=== PATIENT | male | born 1940 | race Asian ===

== ENCOUNTER 2017-08-26 17:22 | Observation (INO) | payer OTHER, MEDICARE ==
[~2017-08-26] VITALS: Ht 170.2 cm; Wt 67.1 kg
--- NOTE | 2017-08-26 18:04 | CT SCAN REPORT ---
EXAMINATION: CT HEAD WITHOUT CONTRAST CLINICAL INFORMATION: Bilateral leg numbness. Dizziness. COMPARISON: None TECHNIQUE: Contiguous axial imaging was performed from the skull base to vertex without intravenous administration of contrast. DLP: 617.74 mGy-cm FINDINGS: There is no evidence of acute intracranial hemorrhage or territorial infarction. No abnormal mass effect or midline shift is seen. Bronson to white matter differentiation is well preserved. No extra-axial fluid collections are identified. There is no hydrocephalus. Encephalomalacia from a chronic infarct in the left frontal white matter involving the left basal ganglia is noted. There is ex vacuo dilatation of the frontal horn of the left lateral ventricle. The osseous structures and soft tissues are normal. The mastoid air cells and visualized portions of the paranasal sinuses are well aerated. IMPRESSION: No acute intracranial pathology. 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
[2017-08-26 18:19] LABS: ABSOLUTE BASOPHIL COUNT 0 /CUMM (0.0-0.2); ABSOLUTE EOSINOPHIL COUNT 1.2 /CUMM (0.0-0.7); ABSOLUTE LYMPH COUNT 4.5 /CUMM (1.2-3.4); ABSOLUTE MONOCYTE COUNT 0.8 /CUMM (0.10-0.60); BASOPHIL % 0.4 % (0.0-2.0); EOSINOPHIL % 10.1 % (0-5); GRANULOCYTE % 43.2 % (42.2-75.2); HEMATOCRIT 46.4 % (42-52); MEAN CORPUSCULAR HGB 29.3 PG (27.0-31.0); MEAN CORPUSCULAR VOLUME 88.8 FL (80.0-94.0); MEAN PLATELET VOLUME 7.3 FL (7.4-10.4); RBC DISTRIBUTION WIDTH 13.4 % (11.5-14.5); RED BLOOD CELL CT 5.22 /CUMM (4.70-6.10); WHITE BLOOD CELL COUNT 11.6 /CUMM (4.8-10.8)
[2017-08-26 18:35] LABS: PLATELET COUNT 350 /CUMM (130-400)
--- NOTE | 2017-08-26 19:18 | ED NEURO DEFICIT/STROKE ---
History of Present Illness General Chief Complaint: General Adult Stated Complaint: NUMBNESS/WEAKNESS TO [place] LEGS Source: patient, family Exam Limitations: no limitations Vital Signs & Intake/Output Vital Signs & Intake/Output Vital Signs Date Time Temp Pulse Resp B/P B/P Pulse O2 O2 Flow FiO2 Mean Ox Delivery Rate 08/26 2144 98.2 66 20 148/72 97 Room Air 08/26 1933 98.5 57 20 142/75 96 Room Air 08/26 1902 97 Room Air Room Air 08/26 1746 98.2 69 16 166/88 98 Room Air Room Air Allergies Coded Allergies: No Known Allergies (08/26/17) Triage Note: PT TO TRIAGE WITH PRONOUNCED WEAKNESS TO BILATERAL LEGS SINCE 11 TODAY. DENIES TRAUMA AND STATES SYMPTOMS CAME ON QUICKLY. PT HAS NUMBNESS TO ONLY LEFT LEG. HE IS ALERT AND ORIENTED, FACE IS SYMMETRICAL AND HAND GRASPS ARE STRONG. PT BACK FROM CT Triage Nurses Notes Reviewed? yes Onset: Abrupt Duration: hour(s): Severity: moderate, severe Impaired Ability: difficult to walk, off balance Baseline: alert, oriented x 3 HPI: 77-year-old male comes into the emergency room with weakness in his leg and off balance. Patient reports that around 11:00 this morning when he got up from his bed he felt profoundly weak in his legs bilaterally. He reports that he felt like he was having difficulty with his walking and balance and coordination. Did not feel dizzy or lightheaded. Denies any chest pain or shortness of breath. Denies any prior history of symptoms like this. Comes in for further evaluation due to persistent symptoms. (Nick Escalera) Reconcile Medications Amlodipine Besylate 10 MG TABLET 1 TAB PO DAILY HIGH BLOOD PRESSURE (Reported ) (Jacob Dimas DO) Past History Travel History Traveled to [place] past 21 day No Medical History Any Pertinent Medical History? 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 No (Nick Escalera) Review of Systems Review of Systems Constitutional: Reports: no symptoms. EENTM: Reports: no symptoms. Respiratory: Reports: no symptoms. Cardiovascular: Reports: no symptoms. GI: Reports: no symptoms. Genitourinary: Reports: no symptoms. Musculoskeletal: Reports: no symptoms. Skin: Reports: no symptoms. Neurological/Psychological: Reports: see HPI. Hematologic/Endocrine: Reports: no symptoms. Immunologic/Allergic: Reports: no symptoms. All Other Systems: Reviewed and Negative (Nick Escaelra) Physical Exam Physical Exam General Appearance: well developed/nourished, no apparent distress, alert, awake Head: atraumatic, normal appearance Eyes: Bilateral: normal appearance. Ears, Nose, Throat: moist mucous membrane, hearing grossly normal Neck: normal inspection Respiratory: no respiratory distress Cardiovascular: regular rate/rhythm Gastrointestinal: soft, non-tender Back: normal inspection Extremities: normal range of motion Psychiatric: awake, alert, oriented x 3 Cranial Nerves: normal hearing, normal speech, PERRL Coordination/Gait: ABN nose to finger (R), slightly unsteady on feet, negative Romberg Motor/Sensory: no motor/sensory deficits Skin: intact, normal color Core Measures CVA/TIA Diagnosis: Yes NIH Stroke Scale NIH Stroke Scale Response Value Level of Consciousness alert 0 LOC Questions answers both correctly 0 LOC Commands obeys both correctly 0 Best Gaze normal 0 Visual Castaneda no visual loss 0 Facial Paresis normal 0 Motor Arm - Left no drift 0 Motor Arm - Right no drift 0 Motor Leg - Left no drift 0 Motor Leg - Right no drift 0 Limb Ataxia no ataxia 0 Sensory normal 0 Best Language no aphasia 0 Dysarthria normal articulation 0 Extinction and Inattention no neglect 0 Total 0 Swallow Evaluation Pass Swallow eval date 08/26/17 Swallow eval time 2015 Sepsis Present: No Sepsis Focused Exam Completed? No (Nick Escalera) Progress Differential Diagnosis: acute glaucoma, Casey's Palsy, drug intoxication, electrolyte imbalance, encephalitis, hypoglycemia, intracranial Hem., intracranial mass/tumor, meningitis, migraine VILLA, seizure disorder, stroke, subarachnoid Hem., vertebrobasilar insuff. Plan of Care: Orders Procedure Date/time Status Heart Healthy Diet 08/27 B Active ECHOCARDIOGRAM 08/27 09 Active LIPID PANEL 08/27 06 Active CBC WITHOUT DIFFERENTIAL 08/27 0600 Active BASIC ELECTROLYTES PLUS BUN&CR 08/27 0600 Active TROPONIN LEVEL 08/27 0000 Active Pathway - chart 08/26 215 Active Patient Data 08/[address] in observation 08/26 2024 Active ED Holding Orders 08/26 2024 Active Vital Signs 08/26 2024 Active Code Status 08/26 2024 Active Intake & Output 08/26 1913 Active EKG 08/26 1748 Active FingerStick- Glucose 08/26 1727 Active URINALYSIS 08/26 1727 Complete TROPONIN LEVEL 08/26 1727 Complete ETHANOL 08/26 1727 Complete COMPREHENSIVE METABOLIC PANEL 08/26 1727 Complete CBC WITHOUT DIFFERENTIAL 08/26 1727 Complete [id number] DOPPLER 08/26 UNK Active PT Evaluate & Treat 08/26 UNK Active House Staff 08/26 UNK Active VTE Mechanical Prophylaxis 08/26 UNK Active Telemetry/Yard Hostler 08/26 UNK Active Precautions 08/26 UNK Active NIH Stroke Scale 08/26 UNK Active CMS- Neurovascular Checks 08/26 UNK Active Activity/Ambulation 08/26 UNK Active MRI-HEAD W/O ADRIANNA 08/26 UNK Active EKG 08/26 UNK Active Current Medications Sig/Regine Start time Last Medication Dose Stop Time Status Admin Aspirin 81 MG DAILY 08/27 0900 AC (Aspirin) Enoxaparin Sodium 40 MG DAILY 08/27 0900 UNVr (Lovenox) Acetaminophen 650 MG Q6P PRN 08/26 2200 AC (Tylenol) Atorvastatin Calcium 80 MG 1700 08/26 2200 AC (Lipitor) Laboratory Tests 08/26/17 1910: Urine Color YEL, Urine Clarity CLEAR, Urine pH 7.0, Ur Specific [place] 1.020, Urine Protein NEG, Urine Ketones NEG, Urine Nitrite NEG, Urine Bilirubin NEG, Urine Urobilinogen 0.2, Ur Leukocyte Esterase NEG, Ur Microscopic EXAM NOT REQUIRED, Urine Hemoglobin NEG, Urine Glucose NEG 08/26/17 1800: Anion Gap 10, Estimated GFR > 60, BUN/Creatinine Ratio 20.0, Glucose 85, Calcium 9.1, Total Bilirubin 0.6, AST 21, ALT 30, Alkaline Phosphatase 69, Troponin I < 0.01, Total Protein 7.5, Albumin 4.6, Globulin 2.9, Albumin/Globulin Ratio 1.6, CBC w Diff MAN DIFF ORDERED, RBC 5.22, MCV 88.8, MCH 29.3, MCHC 33.0, RDW 13.4, MPV 7.3 L, Gran % 43.2, Lymphocytes % 39.0, Monocytes % 7.3, Eosinophils % 10.1 H, Basophils % 0.4, Absolute Granulocytes 5.0, Segmented Neutrophils 45, Band Neutrophils 2, Absolute Lymphocytes 4.5 H, Lymphocytes 43, Monocytes 3, Absolute Monocytes 0.8 H, Eosinophils 7 H, Absolute Eosinophils 1.2, Absolute Basophils 0, Nucleated RBCs 4 H, Platelet Estimate VERIFIED BY SMEAR, Normocytic RBCs VERIFIED, Normochromic RBCs VERIFIED, Serum Alcohol < 10.0 Diagnostic Imaging: Viewed by Me: CT Scan. Discussed w/RAD: CT Scan. Radiology Impression: PATIENT: DONOVAN QUINONEZ PRESENT AGE: 77 PATIENT ACCOUNT NO: [id number] : 41 LOCATION: [facility] ORDERING PHYSICIAN: Florian CEDEÑO SERVICE DATE: 08/26/17 EXAM TYPE: CAT - CT HEAD WO IV CONTRAST EXAMINATION: CT HEAD WITHOUT CONTRAST CLINICAL INFORMATION: Bilateral leg numbness. Dizziness. COMPARISON: None TECHNIQUE: Contiguous axial imaging was performed from the skull base to vertex without intravenous administration of contrast. DLP: 617.74 mGy-cm FINDINGS: There is no evidence of acute intracranial hemorrhage or territorial infarction. No abnormal mass effect or midline shift is seen. Bronson to white matter differentiation is well preserved. No extra-axial fluid collections are identified. There is no hydrocephalus. Encephalomalacia from a chronic infarct in the left frontal white matter involving the left basal ganglia is noted. There is ex vacuo dilatation of the frontal horn of the left lateral ventricle. The osseous structures and soft tissues are normal. The mastoid air cells and visualized portions of the paranasal sinuses are well aerated. IMPRESSION: No acute intracranial pathology. 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 DICTATED BY: Remberto Small MD DATE/TIME DICTATED:08/26/171758 PATIENT CARE NURSING ASSISTANT:DANE DATE/TIME TRANSCRIBED:08/26/171758 CONFIDENTIAL, DO NOT COPY WITHOUT APPROPRIATE AUTHORIZATION. <Electronically signed in Other Vendor System> SIGNED BY: Remberto Small MD 08/26/171803 Initial ED EKG: normal sinus rhythm, rate (62) (Nick Escalera) Departure Departure Disposition: STILL A PATIENT Condition: Stable Clinical Impression Primary Impression: TIA (transient ischemic attack) Departure Forms: Customer Survey General Discharge Information Observation Note Physician Advisor Notified: JACOB DIMAS DO Place Patient In: Non-ED OBS Care Area Rationale for Observation: My rational for observation is as follows . Patient will require MRI of brain to rule out cerebellar infarct. Neurology consultation. Repeat neuro checks. Repeat vital signs. (Carlos CEDEÑO,Nick) Observation Note Spoke With: Brady Tinajero MD Rationale for Observation: My rational for observation is as follows . I saw and evaluated the patient and I agree with the PAs evaluation. He has severe dizziness and lower extremity weakness which is improved. Findings are concerning for cerebellar TIA (Jacob Dimas DO)
--- NOTE | 2017-08-26 20:51 | History & Physical ---
[facility]1720[facility] General Information and HPI MD Statement: I have seen and personally examined DONOVAN QUINONEZ and documented this H&P. The patient is a 77 year old M who presented with a patient stated chief complaint of [lower extremity weakness]. Source of Information: patient, family Exam Limitations: no limitations History of Present Illness: 77 yo M with PMH of hypertension, hyperlipidemia presents to the ED for evaluation of lower extremity weakness and gait instability. The patient states that he woke up this morning in his usual state of health. He had breakfast. He lives on the first floor, later around 11am he went down to the garage and felt weakness in his lower extremities and that he felt off balance. States he had some blurry vision at that time as well which resolved later. Denies any chest pain, palpitations, dizziness, lightheadedness or any other associated symptoms during the episode. Denies any prior such episodes. He states that around 2pm he noticed his symptoms to have improved. Around 5pm he started feeling like his symptoms had worsened again. He was brought to the ED by family members for further evaluation. In the ED he felt weakness in his right arm which he noticed when trying to use chopsticks to have dinner. Allergies/Medications Allergies: Coded Allergies: No Known Allergies (08/26/17) Past History Travel History Traveled to [place] past 21 day No Medical History Neurological: NONE EENT: NONE Cardiovascular: hypertension, hyperlipidemia Respiratory: NONE Gastrointestinal: NONE Hepatic: NONE Renal: NONE Musculoskeletal: NONE Psychiatric: NONE Endocrine: NONE Blood Disorders: NONE Cancer(s): NONE CAN INTAKE WORKER/Reproductive: NONE Surgical History Surgical History: non-contributory Past Family/Social History Psychosocial History ETOH Use: occasional use Illicit Drug Use: denies illicit drug use Review of Systems Review of Systems Constitutional: Reports: weakness. Denies: chills, fever. EENTM: Reports: blurred vision. Cardiovascular: Denies: chest pain, palpitations. Respiratory: Denies: cough, short of breath. GI: Denies: abdominal pain, diarrhea. Genitourinary: Reports: no symptoms. Musculoskeletal: Denies: joint pain. Skin: Reports: no symptoms. Neurological/Psychological: Denies: headache, numbness, paresthesia, pre-existing deficit. Exam & Diagnostic Data Last 24 Hrs of Vital Signs/I&O Vital Signs Date Time Temp Pulse Resp B/P B/P Pulse O2 O2 Flow FiO2 Mean Ox Delivery Rate 08/26 2144 98.2 66 20 148/72 97 Room Air 08/26 1933 98.5 57 20 142/75 96 Room Air 08/26 1902 97 Room Air Room Air 08/26 1746 98.2 69 16 166/88 98 Room Air Room Air Physical Exam General Appearance Alert, Oriented X3, Cooperative, No Acute Distress Skin No Rashes, No Breakdown Skin Temp/Moisture Exam: Warm/Dry Sepsis Skin Exam (color): Normal for Ethnicity HEENT Atraumatic Cardiovascular Normal S1, Normal S2, No Murmurs Lungs Clear to Auscultation, Normal Air Movement Abdomen Soft, No Tenderness Neurological Normal Speech, Strength at 5/5 X4 Ext, Sensation Intact, Cranial Nerves 3-12 NL, Reflexes 2+ Extremities No Edema, No Tenderness/Swelling Assessment/Plan Assessment: 77 yo M with PMH of hypertension, hyperlipidemia presents to the ED for evaluation of lower extremity weakness and gait instability. Assessment: 1. TIA vs Stroke 2. 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 History of Hypertension Plan: * Admit patient to telemetry for monitoring of arrhythmia * R/o ACS with serial trops and EKGs * One time aspirin 325mg to be given now and 81mg from tomorrw * Carotid U/S to assess for stenosis * Neurochecks q8 * Neurology consult in am * MRI in am to assess for acute infarct. * Cardiology consult * Echocardiogram to assess for LV thrombus/PFO/septal defect * Lipid Panel * PT/OT in am * Diet: Heart Healthy * DVT Prophylaxis: SC Lovenox * Code: Full Code As Ranked By This Provider Problem List: 1. TIA (transient ischemic attack) Core Measures/Misc (01/26) Acute Coronary Syndrome ACS Diagnosis: No Congestive Heart Failure Congestive Heart Failure Diagnosis No Cerebrovascular Accident CVA/TIA Diagnosis: Yes NIH Stroke Scale: Total 0 Date Last Known Well: 08/26/17 Time Last Known Well: 1100 Symptom Start Date: 08/26/17 Symptom Start Time: 1100 Reason tPA not ordered Medical Contraindication Swallow Evaluation Pass VTE (View Protocol) VTE Risk Factors Age>40 No Mechanical VTE Prophylaxis d/t N/A MechProphylax Ordered No VTE Pharm Prophylaxis d/t NA PharmProphylax ordered Sepsis (View protocol) Sepsis Present: No Observation Initial Note - I have personally examined DONOVAN QUINONEZ on 08/27/17 at 0527. The disposition of DONOVAN QUINONEZ is uncertain at this time and before a determination can be made, he requires a period of observation for the following reasons [TIA/ stroke] Lior REYNOLDS, [facility] 08/27/17 0130: Attending MD Review Statement Attending Statement Attending MD Statement: examined this patient, discuss w/resident/PA/CLAIMS ADJUSTER SUPERVISOR, agreed w/resident/PA/CLAIMS ADJUSTER SUPERVISOR, discussed with family, reviewed images, amended to note Attending Assessment/Plan: 77 M smoker with h/o HTN, HLD, is here for sudden onset b/l lower extremity weakness and gait instability that started around 11 am yesterday. He also noticed transient blurry vision that has resolved since. He took a short nap and woke up around 2 pm feeling some improvement in the weakness. But around 5 pm, he felt weak in his leg and off balance when he tries to ambulate, so his daughters brought him to the ER. While in the ER, he tried to use the chopsticks to ear, but felt his right hand is weaker although he was able to use it. When asked to ambulate, he feels he is in the air and off balance. Denies dizziness, CP or palpitations. No prior h/o stroke or TIA. No history of IA or diabetes. Family did not notice any facial droop or speech deficits. Vitals stable. Neuro exam: speech clear, tongue/ uvula central, cranial nerve exam normal, no visual field deficits, no pronator drift, motor 5/5 in all extremities but very vague difference on right compared to left, sensation intact, plantars downgoing , reflexes 2+, no dysdiadochokinesia, finger nose testing was slightly off on the right side on initial ER PA exam, but this was accurate/ normal at the time of our evaluation. Gait- patient took slow steps and was dragging his right leg when asked to stand with feet together. On romberg's he was swaying backwards. Chest clear, Heart S1S2 regular. Labs: WBC 11.6, eosinophils 7, trop neg, BEP normal, UA neg. Alcohol < 10. 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 EKG: sinus rhythm, no acute changes. Assessment and plan: 1. Bilateral lower extremity weakness with gait instability likely an acute stroke 2. Old left frontal infarct based on CT 3. Essential hypertension 4. Hyperlipidemia not on medications 5. Smoker 6. Eosinophilia of unclear etiology 7. Leukocytosis likely reactive, no clear source - 23 hour observation on Telemetry - Neurochecks Q2 - Fall precautions - Aspirin and high dose statin - MRI in AM - Carotid doppler and Echo - Rule out ACS - Neuro and Cardio consults - PT/OT eval - Passed bedside swallow eval - Smoking cessation enforced. - Check lipid panel, TSH, free T4, HbA1c DVT ppx Lovenox. Full code. Observation Initial Note - I have personally examined DONOVAN QUINONEZ on 08/27/17 at 0130. The disposition of DONOVAN QUINONEZ is uncertain at this time and before a determination can be made, he requires a period of observation for the following reasons [TIA/ stroke] Catarina Croft 08/27/17 1546: General Information and HPI Allergies/Medications Home Med list Amlodipine Besylate 10 MG TABLET 1 TAB PO DAILY HIGH BLOOD PRESSURE (Reported ) Aspirin (Aspirin*) 81 MG TAB.CHEW 81 MG PO DAILY cardiovascular health Atorvastatin Calcium 80 MG TABLET 80 MG PO DAILY cholesterol Resident Review Statement Resident Statement: examined this patient, discussed with risk management intern, agreed with risk management intern, discussed with family, reviewed EMR data (avail), discussed with nursing , discussed with case mgmt, reviewed images Other Findings: is a pleasent 77 yo man active smoker, with PMHx. of HTN, HLD presented to ED with a c/o right LE extrimity weakness and Rt. UE weakness at ED concerning for TIA. Head CT-old frontal infarct. Will admitt the patient to telemetry floor under observation, neurochecks, fall precautions, MRI-head, carotid US, echocardiogram, Neurology consult, statin/ aspirin, R/O ACS, PT/OT, lipid panel, dvt ppx: MAXX Lovewinifred, SINDHU
[2017-08-26] MEDS ORDERED: AMLODIPINE BESY10 M1 PO (21:46)
[2017-08-27 06:07] LABS: ABSOLUTE BASOPHIL COUNT 0.1 /CUMM (0.0-0.2); ABSOLUTE EOSINOPHIL COUNT 1.1 /CUMM (0.0-0.7); ABSOLUTE GRANULOCYTE CT 5.5 /CUMM (1.4-6.5); ABSOLUTE LYMPH COUNT 3.7 /CUMM (1.2-3.4); ABSOLUTE MONOCYTE COUNT 0.8 /CUMM (0.10-0.60); BASOPHIL % 0.5 % (0.0-2.0); EOSINOPHIL % 9.9 % (0-5); GRANULOCYTE % 49.4 % (42.2-75.2); HEMATOCRIT 42.9 % (42-52); MEAN CORPUSCULAR HGB 29.6 PG (27.0-31.0); MEAN CORPUSCULAR HGB CONC 33.4 G/DL (33.0-37.0); MEAN CORPUSCULAR VOLUME 88.6 FL (80.0-94.0); MEAN PLATELET VOLUME 7.4 FL (7.4-10.4); PLATELET COUNT 337 /CUMM (130-400); RBC DISTRIBUTION WIDTH 13.3 % (11.5-14.5); RED BLOOD CELL CT 4.84 /CUMM (4.70-6.10); WHITE BLOOD CELL COUNT 11.2 /CUMM (4.8-10.8)
[2017-08-27 07:00] VITALS: BP 142/67
--- NOTE | 2017-08-27 08:30 | PN- Housestaff ---
Glory Flood MD 08/27/17 0830: Subjective Follow-up For: Stroke Complaints: no complaints Tele-Events Since Last Visit: Sinus rhythm 55-65 with no events Subjective: Patient states that this morning he has no weakness and is back to normal. His right arm issues as well as his knee issues have resolved. The patient has no other complaints. Review of Systems Constitutional: Reports: no symptoms. Objective Last 24 Hrs of Vital Signs/I&O Vital Signs Date Time Temp Pulse Resp B/P B/P Pulse O2 O2 Flow FiO2 Mean Ox Delivery Rate 08/27 1512 98.2 56 16 135/70 98 Room Air Room Air 08/27 0700 97.8 61 20 142/67 96 Room Air 08/27 0538 97.8 61 20 142/67 96 Room Air 08/27 0004 97.5 63 18 130/85 96 Room Air 08/26 2145 98.2 66 20 148/72 97 Room Air 08/26 1933 98.5 57 20 142/75 96 Room Air 08/26 1902 97 Room Air Room Air 08/26 1746 98.2 69 16 166/88 98 Room Air Room Air Intake & Output 08/27 1600 08/27 0800 08/27 0000 Intake Total 400 Output Total 400 Balance 400 -400 Intake, Oral 400 Output, Urine 400 Patient 148 lb 148 lb Weight Physical Exam General Appearance: Alert, Oriented X3, Cooperative, No Acute Distress Skin: No Rashes, No Breakdown, No Significant Lesion Skin Temp/Moisture Exam: Warm/Dry HEENT: Atraumatic, PERRLA, EOMI, Mucous Membr. moist/pink Cardiovascular: Regular Rate, Normal S1, Normal S2, No Murmurs Lungs: Clear to Auscultation, Normal Air Movement Abdomen: Normal Bowel Sounds, Soft, No Tenderness, No Hepatospenomegaly, No Masses Neurological: Strength at 5/5 X4 Ext, Normal Tone, Cranial Nerves 3-12 NL, Reflexes 2+, slow gait, strength 5 out of 5 in all extremities including the right arm. No facial asymmetry. Extremities: No Clubbing, No Cyanosis, No Edema, Normal Pulses, No Tenderness/ Swelling Vascular: Normal Pulses, Pulses Symmetrical Sepsis Peripheral Pulse Location: Radial Current Medications: Current Medications Sig/Regine Start time Last Medication Dose Route Stop Time Status Admin Acetaminophen 650 MG Q6P PRN 04/17 2200 AC PO Aspirin 81 MG DAILY 04/18 0900 AC 08/27 PO 1009 Aspirin 0 .STK-MED ONE 08/26 2350 DC PO Aspirin 325 MG ONCE ONE 08/26 2199 DC 08/27 PO 08/26 2201 0000 Atorvastatin Calcium 80 MG 1700 08/26 2200 AC 08/27 PO 0000 Enoxaparin Sodium 40 MG DAILY 08/27 0900 AC 08/27 SC 1009 Last 24 Hrs of Lab/Emiliano Results Last 24 Hrs of Labs/Mics: Laboratory Tests 08/27/17 0536: Anion Gap 10, Estimated GFR > 60, BUN/Creatinine Ratio 23.3, Triglycerides 170 H, Cholesterol 160, LDL Cholesterol, Calc 94, HDL Cholesterol 32 L, Cholesterol /HDL Ratio 5 H, CBC w Diff MAN DIFF ORDERED, RBC 4.84, MCV 88.6, MCH 29.6, MCHC 33.4, RDW 13.3, MPV 7.4, Gran % 49.4, Lymphocytes % 32.9, Monocytes % 7.3, Eosinophils % 9.9 H, Basophils % 0.5, Absolute Granulocytes 5.5, Segmented Neutrophils 50, Absolute Lymphocytes 3.7 H, Lymphocytes 34, Monocytes 3, Absolute Monocytes 0.8 H, Eosinophils 12 H, Absolute Eosinophils 1.1, Basophils 1, Absolute Basophils 0.1, Platelet Estimate ADEQUATE, Normochromic RBCs VERIFIED, Ovalocytes FEW, Fld Total RBCs Counted 100 08/27/17 0006: Troponin I < 0.01 08/26/17 1910: Urine Color YEL, Urine Clarity CLEAR, Urine pH 7.0, Ur Specific [place] 1.020, Urine Protein NEG, Urine Ketones NEG, Urine Nitrite NEG, Urine Bilirubin NEG, Urine Urobilinogen 0.2, Ur Leukocyte Esterase NEG, Ur Microscopic EXAM NOT REQUIRED, Urine Hemoglobin NEG, Urine Glucose NEG 08/26/17 1800: Anion Gap 10, Estimated GFR > 60, BUN/Creatinine Ratio 20.0, Glucose 85, Calcium 9.1, Total Bilirubin 0.6, AST 21, ALT 30, Alkaline Phosphatase 69, Troponin I < 0.01, Total Protein 7.5, Albumin 4.6, Globulin 2.9, Albumin/Globulin Ratio 1.6, CBC w Diff MAN DIFF ORDERED, RBC 5.22, MCV 88.8, MCH 29.3, MCHC 33.0, RDW 13.4, MPV 7.3 L, Gran % 43.2, Lymphocytes % 39.0, Monocytes % 7.3, Eosinophils % 10.1 H, Basophils % 0.4, Absolute Granulocytes 5.0, Segmented Neutrophils 45, Band Neutrophils 2, Absolute Lymphocytes 4.5 H, Lymphocytes 43, Monocytes 3, Absolute Monocytes 0.8 H, Eosinophils 7 H, Absolute Eosinophils 1.2, Absolute Basophils 0, Nucleated RBCs 4 H, Platelet Estimate VERIFIED BY SMEAR, Normocytic RBCs VERIFIED, Normochromic RBCs VERIFIED, Serum Alcohol < 10.0 Assessment/Plan Assessment: 77-year-old male with a past medical history significant for hypertension, hyperlipidemia, smoking, tuberculosis treated is brought in for evaluation and treatment of weakness. The patient states that on the day of admission at about 11 AM he felt that his knees were weak when he attempted to descend a flight of stairs. He also noticed transient blurry vision. He took a short nap and woke up around 2 pm feeling some improvement in the weakness. But around 5 pm, the weakness returned so his daughters brought him in. Family did not notice any facial droop or speech deficits.While in the ER, he noted that he felt his right hand was weaker although he was able to use it. At the time of interview in the ED he stated that he felt off balance when attempting to ambulate. Denies dizziness, CP or palpitations. No prior h/o stroke or TIA. No history of [place] or diabetes. Patient has a family history of heart disease. Neuro exam: speech clear, tongue/ uvula central, cranial nerve exam normal, no visual field deficits, no pronator drift, motor 5/5 in all extremities but very vague difference on right compared to left, sensation intact, plantars downgoing , reflexes 2+, no dysdiadochokinesia, finger nose testing was slightly off on the right side on initial ER PA exam, but this was accurate/ normal at the time of our evaluation. Gait- patient took slow steps and was dragging his right leg when asked to stand with feet together. On romberg's he was swaying backwards. 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 EKG: sinus rhythm, no acute changes. Plan Patient was placed in observation on the telemetry floors for evaluation and treatment of the following: Weakness with old left frontal infarct based on CT -Neuro consult -MRI showed small acute infarct in the left thalamus. This could affect the patient's sensation, balance, peripheral vision. This also could cause nausea vomiting. Of note the patient continues to have difficulty with balance. -Neurochecks every 2 hours -Fall precautions -Aspirin and high-dose statin, patient's lipid panel showed elevated triglycerides and LDL but cholesterol and LDL within normal limits -Echocardiogram -Carotid Doppler was negative. -Troponins and EKGs negative -PT/OT eval -Patient passed bedside swallow so has been placed on a diet. -TSH, free T4, HbA1c Essential hypertension -Patient on amlodipine outpatient -We will hold amlodipine at the moment for permissive hypertension. For TIA data does not support with holding antihypertensives but as patient was found to have stroke in thalamus we will hold his amlodipine. Hyperlipidemia not on medications -High-dose statin Smoker -Smoking cessation enforced. DVT ppx Lovenox. Full code. Problem List: 1. Acute thalamic infarction Pain Ratin Pain Location: na Pain Goal: Remain pain free Pain Plan: na Tomorrow's Labs & Rationales: cbc bep Mervin Rodriguez 08/27/17 1422: Attending MD Review Statement Attending Statement Attending MD Statement: examined this patient, discuss w/resident/PA/DOWEL POINTER, agreed w/resident/PA/DOWEL POINTER, discussed with family, reviewed EMR data (avail), discussed with nursing, discussed with case mgmt, reviewed images, amended to note Attending Assessment/Plan: Patient admitted to telemetry monitoring for acute stroke. MRI brain with acute small thalamus infarct. Neurology consult. PT/OT , ASA/STATIN, lipid profile, hba1c. Speech/swallow. Neurochecks. gi/dvt prophyalxis
--- NOTE | 2017-08-27 09:39 | ULTRASOUND REPORT ---
EXAMINATION: DUPLEX BILATERAL CAROTID ULTRASOUND CLINICAL INFORMATION: TIA COMPARISON: None. TECHNIQUE: Duplex bilateral carotid US was performed using real-time ultrasound and Doppler techniques (integrating B-mode 2D vascular images, Doppler spectral analysis and color flow Doppler imaging). These techniques were utilized to interrogate the extracranial carotid and vertebral arteries bilaterally. The degree of stenosis is based off criteria similar to NASCET. FINDINGS: 1. On the right: Plaque is present at the carotid bifurcation but velocity measurements are normal and do not suggest a stenosis of greater than 50% diameter reduction in the right ICA. The vertebral artery is patent demonstrating antegrade flow. The right ECA demonstrates a mild stenosis with peak systolic velocity of under 200 cm/s. 2. On the left: No plaque is present at the carotid bifurcation and all velocity measurements are normal and do not suggest a stenosis of greater than 50% diameter reduction in the left ICA. The vertebral artery is patent demonstrating antegrade flow. The left external carotid artery shows no significant stenosis. IMPRESSION: There is plaque present in the right internal carotid artery with normal velocities consistent with a minimal 0-49% stenosis. The left side is normal with no plaque seen.
[2017-08-27] MEDS ORDERED: ASPIRIN81 M4 PO (11:44)
[2017-08-27] MEDS ORDERED: ATORVASTATIN CA80 M1 PO (11:44)
--- NOTE | 2017-08-27 11:46 | Patient Discharge Instructions ---
Discharge Instructions General Discharge Information You were seen/treated for: transient ischemic attack (mini-stroke) You had these procedures: carotid artery ultrasound MRI echocardiogram Watch for these problems: weakness headaches vision changes Special Instructions: 1. please follow up with your primary care doctor in one week 2. please take all meds as directed 3. You need to get an echocardiogram while outpatient. Please titrate your hypertension meds based on echo with PCP. [facility] call [phone] at [facility] to get an appointment Diet Continue normal diet: Yes Recommended Diet: Heart Healthy Activity Full Activity/No Limits: Yes (as tolerated) Acute Coronary Syndrome Inclusion Criteria At DC or during hospital stay patient has or had the following: ACS DIAGNOSIS No Discharge Core Measures Meds if any: Prescribed or Continued at Discharge Meds if any: NOT Prescribed or Continued at Discharge Congestive Heart Failure Inclusion Criteria At DC or during hospital stay patient has or had the following: CHF DIAGNOSIS No Discharge Core Measures Meds if any: Prescribed or Continued at Discharge Meds if any: NOT Prescribed or Continued at Discharge Cerebrovascular accident Inclusion Criteria At DC or during hospital stay patient has or had the following: CVA/TIA Diagnosis Yes Discharge Core Measures Meds if any: Prescribed or Continued at Discharge Statin (required if LDL =>70) Yes Meds if any: NOT Prescribed or Continued at Discharge Venous thromboembolism Inclusion Criteria VTE Diagnosis No VTE Type NONE VTE Confirmed by (Test) NONE Discharge Core Measures - Per Current guidelines, there needs to be overlap - treatment for the first 5 days of Warfarin therapy. - If discharged on Warfarin prior to 5 days of - overlap therapy, the patient will need to be - assessed for post discharge needs including - *Post discharge parental anticoagulation - *Warfarin and/or parental anticoagulation education - *Follow up date to check INR post discharge At least 5 days overlap therapy as Inpatient No Meds if any: Prescribed or Continued at Discharge Note: Overlap Therapy is Warfarin and Anticoagulant Meds if any: NOT Prescribed or Continued at Discharge
--- NOTE | 2017-08-27 11:53 | MRI REPORT ---
EXAMINATION: MR BRAIN WITHOUT CONTRAST CLINICAL INFORMATION: Right-sided weakness. COMPARISON: Head CT from 08/26/2017. TECHNIQUE: Multiplanar, multisequence imaging of the brain was performed without contrast. FINDINGS: There is a small acute infarct in the left thalamus. The ventricles are normal in size. No mass effect or midline shift is seen. Mild chronic white matter microangiopathic changes are noted. There is a chronic infarct in the anterior left basal ganglia. No extra-axial fluid collections are seen. The brainstem and cerebellum are normal. The gradient refocused acquisition is normal. The craniovertebral junction, marrow signal, and midline structures are normal. The major intracranial flow voids at the level of the north fork of [place] are preserved. The dural venous sinus flow voids are maintained. The mastoid air cells are well aerated. There is mild mucosal thickening in the left maxillary sinus. IMPRESSION: Small acute infarct in the left thalamus. Mild chronic white matter microangiopathy. Chronic infarct in the left basal ganglia.
--- NOTE | 2017-08-27 13:24 | PN- Student ---
Subjective Subjective: 77 year old male with hypertension, hyperlipidemia, [id number] smoking history, and history of tuberculosis presents with acute lower extremity weakness and gait instability along with visual bluriness. The patient woke up yesterday feeling normal, but after a few hours he developed weakness and "heaviness" in his lower limbs bilaterally and difficulty walking, along with blurry vision. The symptoms subsided within 2 hours but the lower extremity weakness and gait instability returned in the afternoon. He stated that he felt he'd lost control of his feet and unbalanced, but was able to walk when holding onto something. The symptoms are presently all resolved. The patient denies ever experiencing anything similar before, and he has not recently been sick. 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 patient denies hearing changes, headache, abdominal pain, chest pain and palpitations. PMHx: TB dx 23 years ago when he immigrated [place] from [place]. recalls taking medication for 3 months. Medications: aspirin, atorvastatin, amlodipine (held by ER). takes vitamin E supplement (1 tablet a day for "aging") FHx: mother of heart-related illnes at 84 y.o. father alive at 101 y.o. with HTN. siblings healthy other than HTN. Social Hx: [id number] smoking history. 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 accompanied by his daughter CV: normal S1, S2. RRR, no murmurs Pulm: lungs clear to ascultation bilaterally HEENT: PERRLA, EOMI, no cervical LAD Neuro: CN2-7 normal. pt had hard time hearing when testing CN8. CN 9-10,12 not assessed. CN 11 normal. content checker, arm, leg, hip, foot strenth 5/5 bilaterally. sensation of lower legs assessed with both ends of cotton swab and normal CT in ED showed chronic infarct in left frontal white matter and left basal ganglia, with no acute findings Doppler showed right-sided plaque at at carotid bifurcation with stenosis <50%. left side was clear MRI showed small acute infarct in left thalamus Results Results: Laboratory Tests 08/27/17 0536: Anion Gap 10, Estimated GFR > 60, BUN/Creatinine Ratio 23.3, Triglycerides 170 H, Cholesterol 160, LDL Cholesterol, Calc 94, HDL Cholesterol 32 L, Cholesterol /HDL Ratio 5 H, CBC w Diff MAN DIFF ORDERED, RBC 4.84, MCV 88.6, MCH 29.6, MCHC 33.4, RDW 13.3, MPV 7.4, Gran % 49.4, Lymphocytes % 32.9, Monocytes % 7.3, Eosinophils % 9.9 H, Basophils % 0.5, Absolute Granulocytes 5.5, Segmented Neutrophils 50, Absolute Lymphocytes 3.7 H, Lymphocytes 34, Monocytes 3, Absolute Monocytes 0.8 H, Eosinophils 12 H, Absolute Eosinophils 1.1, Basophils 1, Absolute Basophils 0.1, Platelet Estimate ADEQUATE, Normochromic RBCs VERIFIED, Ovalocytes FEW, Fld Total RBCs Counted 100 08/27/17 0006: Troponin I < 0.01 08/26/17 1910: Urine Color YEL, Urine Clarity CLEAR, Urine pH 7.0, Ur Specific [place] 1.020, Urine Protein NEG, Urine Ketones NEG, Urine Nitrite NEG, Urine Bilirubin NEG, Urine Urobilinogen 0.2, Ur Leukocyte Esterase NEG, Ur Microscopic EXAM NOT REQUIRED, Urine Hemoglobin NEG, Urine Glucose NEG 08/26/17 1800: Anion Gap 10, Estimated GFR > 60, BUN/Creatinine Ratio 20.0, Glucose 85, Calcium 9.1, Total Bilirubin 0.6, AST 21, ALT 30, Alkaline Phosphatase 69, Troponin I < 0.01, Total Protein 7.5, Albumin 4.6, Globulin 2.9, Albumin/Globulin Ratio 1.6, CBC w Diff MAN DIFF ORDERED, RBC 5.22, MCV 88.8, MCH 29.3, MCHC 33.0, RDW 13.4, MPV 7.3 L, Gran % 43.2, Lymphocytes % 39.0, Monocytes % 7.3, Eosinophils % 10.1 H, Basophils % 0.4, Absolute Granulocytes 5.0, Segmented Neutrophils 45, Band Neutrophils 2, Absolute Lymphocytes 4.5 H, Lymphocytes 43, Monocytes 3, Absolute Monocytes 0.8 H, Eosinophils 7 H, Absolute Eosinophils 1.2, Absolute Basophils 0, Nucleated RBCs 4 H, Platelet Estimate VERIFIED BY SMEAR, Normocytic RBCs VERIFIED, Normochromic RBCs VERIFIED, Serum Alcohol < 10.0 Assessment/Plan Assessment: 77 year old male patient with history of hypertension, hyperlipidemia, tuberculosis, and a [id number] smoking history presenting with 1 day of acute bilateral lower extremity weakness and gait instability associated with brief vision blurriness, all of which have since resolved. CT showed chronic infarction at the left basal ganglia, indicating chronic cerebrovascular disease. Normal neuro exam leads more toward TIA, but MRI indicated a small acute infarct of the left thalamus and Doppler showed right ICA stenosis of <50%. MRI findings give concern for acute CVA that may have been the cause of patient's presenting symptoms. 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 Patient's supplemental vitamin E use, if overdosed, could contribute to hemorrhagic infarction, but imaging studies point toward ischemic infarct from a clot. Plan: 1. CVA in older male with extensive smoking history, HTN, HLD -MRI, doppler already received - U/S to view vasculature -echo to r/o heart as origin of embolism -lipid panel to determine extent of hyperlipidemia - monitor neuro function -continue lipid-lowering medications 2. [id number] smoking history -encourage and provide resources for smoking cessation 3. chronic lower back pain - acetaminophen and ibuprofen as needed - repeat spinal xray
--- NOTE | 2017-08-27 15:19 | Cons- Neurology ---
General Information and HPI Consulting Request Date of Consult: 08/27/17 Requested By: Mervin Rodriguez MD Reason for Consult: CVA Source of Information: patient, family, old records Exam Limitations: no limitations History of Present Illness: Consult request received this AM on this 77 Right handed man who was well yesterday AM until a nap around 10 or 11 am, awakened off balance, difficulty walking, some impairment of right hand and heaviness with paresthesias right leg reported afterwards. Today feels about back to normal. No associated headache or cardiac complaints. Not on ASA, known HTN, had been on statin in the past, smoker, no family hx CVA, no prior clinical events. Allergies/Medications Allergies: Coded Allergies: No Known Allergies (08/26/17) Home Med List: Amlodipine Besylate 10 MG TABLET 1 TAB PO DAILY HIGH BLOOD PRESSURE (Reported ) Aspirin (Aspirin*) 81 MG TAB.CHEW 81 MG PO DAILY cardiovascular health Atorvastatin Calcium 80 MG TABLET 80 MG PO DAILY cholesterol Current Medications: Current Medications Sig/Regine Start time Last Medication Dose Route Stop Time Status Admin Acetaminophen 650 MG Q6P PRN 08/26 2200 AC PO Aspirin 81 MG DAILY 08/27 0900 AC 08/27 PO 1009 Aspirin 0 .STK-MED ONE 08/26 2350 DC PO Aspirin 325 MG ONCE ONE 08/26 2200 DC 08/27 PO 08/26 2201 0000 Atorvastatin Calcium 80 MG 1700 08/26 2200 AC 08/27 PO 0000 Enoxaparin Sodium 40 MG DAILY 08/27 0900 AC 08/27 SC 1009 Review of Systems Review of Systems: no complaints on the complete 12 pt ROS Past History Travel History Traveled to [place] past 21 day No Medical History Blood Transfusion Hx: No Neurological: NONE EENT: NONE Cardiovascular: hypertension, hyperlipidemia Respiratory: NONE Gastrointestinal: NONE Hepatic: NONE Renal: NONE Musculoskeletal: NONE Psychiatric: NONE Endocrine: NONE Blood Disorders: NONE Cancer(s): NONE 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 Surgical History Surgical History: non-contributory Psychosocial History Smoking Status: Current Everyday Smoker ETOH Use: occasional use Illicit Drug Use: denies illicit drug use Exam & Diagnostic Data Vital Signs and I&O Vital Signs Date Time Temp Pulse Resp B/P B/P Pulse O2 O2 Flow FiO2 Mean Ox Delivery Rate 08/27 0700 97.8 61 20 142/67 96 Room Air 08/27 0538 97.8 61 20 142/67 96 Room Air 08/27 0004 97.5 63 18 130/85 96 Room Air 08/26 2145 98.2 66 20 148/72 97 Room Air 08/26 1933 98.5 57 20 142/75 96 Room Air 08/26 1902 97 Room Air Room Air 08/26 1746 98.2 69 16 166/88 98 Room Air Room Air Intake & Output 08/27 1600 08/27 0800 08/27 0000 Intake Total 400 Output Total 400 Balance 400 -400 Intake, Oral 400 Output, Urine 400 Patient 148 lb 148 lb Weight Physical Exam: Looks well, no distress no bruits, murmur alert, oriented, language intact no dysarthria, recall OK VFF, EOMI, P4ERRL V and VII normal lower CN normal motor power, tone, 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, normal no drift sensory normal touch pin, DSS DTRs hypoactive, no pathological signs coord normal gait test deferred Last 48 Hours of Lab Results: Laboratory Tests 08/27 08/27 0536 0006 Chemistry Sodium (137 - 145 mmol/L) 140 Potassium (3.5 - 5.1 mmol/L) 3.9 Chloride (98 - 107 mmol/L) 106 Carbon Dioxide (22 - 30 mmol/L) 25 Anion Gap (5 - 16) 10 BUN (9 - 20 mg/dL) 14 Creatinine (0.7 - 1.2 mg/dL) 0.6 L Estimated GFR (>60 ml/min) > 60 BUN/Creatinine Ratio (7 - 25 %) 23.3 Troponin I (<0.11 ng/ml) < 0.01 Triglycerides (<150 mg/dL) 170 H Cholesterol (< 200 MG/DL) 160 LDL Cholesterol, Calc (65 - 129 mg/dL) 94 HDL Cholesterol (40 - 60 mg/dL) 32 L Cholesterol/HDL Ratio (0.00 - 4.88 %) 5 H Hematology CBC w Diff MAN DIFF ORDERED WBC (4.8 - 10.8 /CUMM) 11.2 H RBC (4.70 - 6.10 /CUMM) 4.84 Hgb (14.0 - 18.0 G/DL) 14.3 Hct (42 - 52 %) 42.9 MCV (80.0 - 94.0 FL) 88.6 MCH (27.0 - 31.0 PG) 29.6 MCHC (33.0 - 37.0 G/DL) 33.4 RDW (11.5 - 14.5 %) 13.3 Plt Count (130 - 400 /CUMM) 337 MPV (7.4 - 10.4 FL) 7.4 Gran % (42.2 - 75.2 %) 49.4 Lymphocytes % (20.5 - 51.1 %) 32.9 Monocytes % (1.7 - 9.3 %) 7.3 Eosinophils % (0 - 5 %) 9.9 H Basophils % (0.0 - 2.0 %) 0.5 Absolute Granulocytes (1.4 - 6.5 /CUMM) 5.5 Segmented Neutrophils (42.2 - 75.2 %) 50 Absolute Lymphocytes (1.2 - 3.4 /CUMM) 3.7 H Lymphocytes (20.5 - 51.1 %) 34 Monocytes (1.7 - 9.3 %) 3 Absolute Monocytes (0.10 - 0.60 /CUMM) 0.8 H Eosinophils (0 - 5.0 %) 12 H Absolute Eosinophils (0.0 - 0.7 /CUMM) 1.1 Basophils (0.0 - 2.0 %) 1 Absolute Basophils (0.0 - 0.2 /CUMM) 0.1 Platelet Estimate (ADEQUATE) ADEQUATE Normochromic RBCs VERIFIED Ovalocytes FEW Other Body Source Fld Total RBCs Counted (%) 100 08/26 1910 Urines Urine Color (YEL,AMB,STR) YEL Urine Clarity (CLEAR) CLEAR Urine pH (5.0 - 8.0) 7.0 Ur Specific [place] (1.001 - 1.035) 1.020 Urine Protein (NEG,<30 MG/DL) NEG Urine Ketones (NEG) NEG Urine Nitrite (NEG) NEG Urine Bilirubin (NEG) NEG Urine Urobilinogen (0.1 - 1.0 EU/dl) 0.2 Ur Leukocyte Esterase (NEG) NEG Ur Microscopic EXAM NOT REQUIRED Urine Hemoglobin (NEG) NEG Urine Glucose (N MG/DL) NEG 08/26 1800 Chemistry Sodium (137 - 145 mmol/L) 140 Potassium (3.5 - 5.1 mmol/L) 4.0 Chloride (98 - 107 mmol/L) 104 Carbon Dioxide (22 - 30 mmol/L) 26 Anion Gap (5 - 16) 10 BUN (9 - 20 mg/dL) 12 Creatinine (0.7 - 1.2 mg/dL) 0.6 L Estimated GFR (>60 ml/min) > 60 BUN/Creatinine Ratio (7 - 25 %) 20.0 Glucose (65 - 99 mg/dL) 85 Calcium (8.4 - 10.2 mg/dL) 9.1 Total Bilirubin (0.2 - 1.3 mg/dL) 0.6 AST (17 - 59 U/L) 21 ALT (21 - 72 U/L) 30 Alkaline Phosphatase (< 127 U/L) 69 Troponin I (<0.11 ng/ml) < 0.01 Total Protein (6.3 - 8.2 g/dL) 7.5 Albumin (3.5 - 5.0 g/dL) 4.6 Globulin (1.9 - 4.2 gm/dL) 2.9 Albumin/Globulin Ratio (1.1 - 2.2 %) 1.6 Hematology CBC w Diff MAN DIFF ORDERED WBC (4.8 - 10.8 /CUMM) 11.6 H RBC (4.70 - 6.10 /CUMM) 5.22 Hgb (14.0 - 18.0 G/DL) 15.3 Hct (42 - 52 %) 46.4 MCV (80.0 - 94.0 FL) 88.8 MCH (27.0 - 31.0 PG) 29.3 MCHC (33.0 - 37.0 G/DL) 33.0 RDW (11.5 - 14.5 %) 13.4 Plt Count (130 - 400 /CUMM) 350 MPV (7.4 - 10.4 FL) 7.3 L Gran % (42.2 - 75.2 %) 43.2 Lymphocytes % (20.5 - 51.1 %) 39.0 Monocytes % (1.7 - 9.3 %) 7.3 Eosinophils % (0 - 5 %) 10.1 H Basophils % (0.0 - 2.0 %) 0.4 Absolute Granulocytes (1.4 - 6.5 /CUMM) 5.0 Segmented Neutrophils (42.2 - 75.2 %) 45 Band Neutrophils (0.0 - 5.0 %) 2 Absolute Lymphocytes (1.2 - 3.4 /CUMM) 4.5 H Lymphocytes (20.5 - 51.1 %) 43 Monocytes (1.7 - 9.3 %) 3 Absolute Monocytes (0.10 - 0.60 /CUMM) 0.8 H Eosinophils (0 - 5.0 %) 7 H Absolute Eosinophils (0.0 - 0.7 /CUMM) 1.2 Absolute Basophils (0.0 - 0.2 /CUMM) 0 Nucleated RBCs (0.0 - 0.0 /100WBC) 4 H Platelet Estimate (ADEQUATE) VERIFIED BY SMEAR Normocytic RBCs VERIFIED Normochromic RBCs VERIFIED Toxicology Serum Alcohol (<10 MG/DL) < 10.0 Imaging/Other Studies: Dopplers, no stenosis MRI: There is a small acute infarct in the left thalamus. The ventricles are normal in size. No mass effect or midline shift is seen. Mild chronic white matter microangiopathic changes are noted. There is a chronic infarct in the anterior left basal ganglia. No extra-axial fluid collections are seen. The brainstem and cerebellum are normal. The gradient refocused acquisition is normal. The craniovertebral junction, marrow signal, and midline structures are normal. The major intracranial flow voids at the level of the [place] are preserved. The dural venous sinus flow voids are maintained. The mastoid air cells are well aerated. There is mild mucosal thickening in the left maxillary sinus. IMPRESSION: Small acute infarct in the left thalamus. Mild chronic white matter microangiopathy. 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
[2017-08-27 17:02] VITALS: BP 134/70
--- NOTE | 2017-08-27 17:13 | PN- Student ---
Subjective Subjective: pt just moved to inpatient room, no changes since morning in ED Objective Objective: Based on reveal of left thalamic infarct, sensory exam was conducted. Light touch: normal Pain/temp: normal Joint position sense: normal Vibration: normal Graphesthesia: normal Stereognosis: normal Eye mayer: normal Results Results: Laboratory Tests 08/27/17 0536: Anion Gap 10, Estimated GFR > 60, BUN/Creatinine Ratio 23.3, Triglycerides 170 H, Cholesterol 160, LDL Cholesterol, Calc 94, HDL Cholesterol 32 L, Cholesterol /HDL Ratio 5 H, CBC w Diff MAN DIFF ORDERED, RBC 4.84, MCV 88.6, MCH 29.6, MCHC 33.4, RDW 13.3, MPV 7.4, Gran % 49.4, Lymphocytes % 32.9, Monocytes % 7.3, Eosinophils % 9.9 H, Basophils % 0.5, Absolute Granulocytes 5.5, Segmented Neutrophils 50, Absolute Lymphocytes 3.7 H, Lymphocytes 34, Monocytes 3, Absolute Monocytes 0.8 H, Eosinophils 12 H, Absolute Eosinophils 1.1, Basophils 1, Absolute Basophils 0.1, Platelet Estimate ADEQUATE, Normochromic RBCs VERIFIED, Ovalocytes FEW, Fld Total RBCs Counted 100 08/27/17 0006: Troponin I < 0.01 08/26/17 1910: Urine Color YEL, Urine Clarity CLEAR, Urine pH 7.0, Ur Specific [place] 1.020, Urine Protein NEG, Urine Ketones NEG, Urine Nitrite NEG, Urine Bilirubin NEG, Urine Urobilinogen 0.2, Ur Leukocyte Esterase NEG, Ur Microscopic EXAM NOT REQUIRED, Urine Hemoglobin NEG, Urine Glucose NEG 08/26/17 1800: Anion Gap 10, Estimated GFR > 60, BUN/Creatinine Ratio 20.0, Glucose 85, Calcium 9.1, Total Bilirubin 0.6, AST 21, ALT 30, Alkaline Phosphatase 69, Troponin I < 0.01, Total Protein 7.5, Albumin 4.6, Globulin 2.9, Albumin/Globulin Ratio 1.6, CBC w Diff MAN DIFF ORDERED, RBC 5.22, MCV 88.8, MCH 29.3, MCHC 33.0, RDW 13.4, MPV 7.3 L, Gran % 43.2, Lymphocytes % 39.0, Monocytes % 7.3, Eosinophils % 10.1 H, Basophils % 0.4, Absolute Granulocytes 5.0, Segmented Neutrophils 45, Band Neutrophils 2, Absolute Lymphocytes 4.5 H, Lymphocytes 43, Monocytes 3, Absolute Monocytes 0.8 H, Eosinophils 7 H, Absolute Eosinophils 1.2, Absolute Basophils 0, Nucleated RBCs 4 H, Platelet Estimate VERIFIED BY SMEAR, Normocytic RBCs VERIFIED, Normochromic RBCs VERIFIED, Serum Alcohol < 10.0 Assessment/Plan Assessment: 77 year old male with [id number] smoking history, hypertension, hyperlipidemia, and history of TB presents with resolved acute bilateral lower extremity weakness, right arm weakness, gait instability, and visual changes in the setting of a CT scan showing chronic infarct near the basal ganglia, an MRI showing a small acute infarct in the left thalamus, normal carotid doppler, and a normal neuro exam. Based on his lack of present symptoms, a TIA is likely, however the presence of acute infarct on MRI indicates a CVA with resolution of symptoms. Plan: -patient will be monitored over night -results of echo pending -neuro consult note pending
[2017-08-27 22:46] VITALS: BP 122/60
[2017-08-28 07:18] VITALS: BP 144/80
--- NOTE | 2017-08-28 07:34 | PN- Student ---
Subjective Subjective: pt feels well and is ready to go home. he was comfortably walking around this morning with no feelings of weakness or heaviness in his legs. he denies any visual disturbances. he denies any abdominal pain, headaches, or weakness. he is looking forward to being home with his and son, and he is motivated to quit smoking with help from nicotine patches. Objective Objective: Per telometry, patient had sinus bradycardia much of the night with lowest HR 53 at 12:53am. HR was 80 in the morning Vitals 7:18am: T:98.3 RR:20 BP:144/80 Sa02:93% Physical Exam General appearance: alert, well-appearing male in no acute distress. Eyes: PERRLA CV: normal S1, S2. RRR, no murmurs Respiratory: lungs clear to ascultation bilaterally GI: normal BS, no tenderness to palpation patient was given topical nicotine Results Results: Laboratory Tests 08/27/17 0536: Anion Gap 10, Estimated GFR > 60, BUN/Creatinine Ratio 23.3, Triglycerides 170 H, Cholesterol 160, LDL Cholesterol, Calc 94, HDL Cholesterol 32 L, Cholesterol /HDL Ratio 5 H, CBC w Diff MAN DIFF ORDERED, RBC 4.84, MCV 88.6, MCH 29.6, MCHC 33.4, RDW 13.3, MPV 7.4, Gran % 49.4, Lymphocytes % 32.9, Monocytes % 7.3, Eosinophils % 9.9 H, Basophils % 0.5, Absolute Granulocytes 5.5, Segmented Neutrophils 50, Absolute Lymphocytes 3.7 H, Lymphocytes 34, Monocytes 3, Absolute Monocytes 0.8 H, Eosinophils 12 H, Absolute Eosinophils 1.1, Basophils 1, Absolute Basophils 0.1, Platelet Estimate ADEQUATE, Normochromic RBCs VERIFIED, Ovalocytes FEW, Fld Total RBCs Counted 100 08/27/17 0006: Troponin I < 0.01 08/26/17 1910: Urine Color YEL, Urine Clarity CLEAR, Urine pH 7.0, Ur Specific [place] 1.020, Urine Protein NEG, Urine Ketones NEG, Urine Nitrite NEG, Urine Bilirubin NEG, Urine Urobilinogen 0.2, Ur Leukocyte Esterase NEG, Ur Microscopic EXAM NOT REQUIRED, Urine Hemoglobin NEG, Urine Glucose NEG 08/26/17 1800: Anion Gap 10, Estimated GFR > 60, BUN/Creatinine Ratio 20.0, Glucose 85, Calcium 9.1, Total Bilirubin 0.6, AST 21, ALT 30, Alkaline Phosphatase 69, Troponin I < 0.01, Total Protein 7.5, Albumin 4.6, Globulin 2.9, Albumin/Globulin Ratio 1.6, CBC w Diff MAN DIFF ORDERED, RBC 5.22, MCV 88.8, MCH 29.3, MCHC 33.0, RDW 13.4, MPV 7.3 L, Gran % 43.2, Lymphocytes % 39.0, Monocytes % 7.3, Eosinophils % 10.1 H, Basophils % 0.4, Absolute Granulocytes 5.0, Segmented Neutrophils 45, Band Neutrophils 2, Absolute Lymphocytes 4.5 H, Lymphocytes 43, Monocytes 3, Absolute Monocytes 0.8 H, Eosinophils 7 H, Absolute Eosinophils 1.2, Absolute Basophils 0, Nucleated RBCs 4 H, Platelet Estimate VERIFIED BY SMEAR, Normocytic RBCs VERIFIED, Normochromic RBCs VERIFIED, Serum Alcohol < 10.0 Assessment/Plan Assessment: 77 year old man with [id number] smoking history, hypertension, and hyperlipidemia with chronic infarctions of the basal ganglia as well as an acute left thalamic infarct, with resolution of symptoms in 1 day. normal neuro exam indicates no deficits sustained from the CVA/TIA. Plan: 1. CVA/TIA -echocardiogram as outpatient (gave him number to call) -see primary care doctor for follow-up (referred to new PCP) -continue medications 2. Smoking -encouraged to quit smoking -prescribed 21mg nicotine patches
--- NOTE | 2017-08-28 08:09 | PN- Housestaff ---
Aleena REYNOLDS,Glory 08/28/17 0809: Subjective Follow-up For: stroke Complaints: no complaints Tele-Events Since Last Visit: Heart rate ranges from 45-80, no events other than the dip in heart rate at 12: 53 AM Subjective: Patient is feeling good, has no complaints, weakness has improved and he feels back to normal. Review of Systems Constitutional: Reports: no symptoms. Objective Last 24 Hrs of Vital Signs/I&O Vital Signs Date Time Temp Pulse Resp B/P B/P Pulse O2 O2 Flow FiO2 Mean Ox Delivery Rate 08/28 07 98.3 53 20 144/80 93 Room Air 08/27 2246 98.6 56 20 122/60 96 Room Air 08/27 1702 98.2 55 20 134/70 94 08/27 1606 98.2 61 16 134/74 98 Room Air 08/27 1512 98.2 56 16 135/70 98 Room Air Room Air Intake & Output 08/28 1600 08/28 0800 08/28 0000 Intake Total 120 120 Output Total Balance 120 120 Intake, Oral 120 120 Physical Exam General Appearance: Alert, Oriented X3, Cooperative, No Acute Distress HEENT: Atraumatic, EOMI, Mucous Membr. moist/pink Cardiovascular: Regular Rate, Normal S1, Normal S2, No Murmurs Lungs: Clear to Auscultation, Normal Air Movement Neurological: Normal Gait, Normal Speech, Strength at 5/5 X4 Ext, Normal Tone, Sensation Intact, Cranial Nerves 3-12 NL, Reflexes 2+ Current Medications: Current Medications Sig/Regine Start time Last Medication Dose Route Stop Time Status Admin Acetaminophen 650 MG Q6P PRN 08/26 2199 AC PO Aspirin 81 MG DAILY 08/27 899 08/28 PO 0842 Atorvastatin Calcium 80 MG 1700 08/26 2199 AC 08/27 PO 1827 Enoxaparin Sodium 40 MG DAILY 08/27 899 AC 08/28 SC 0843 Nicotine 14 MG DAILY 08/28 899 [facility] Nicotine 14 MG ONCE ONE 08/27 2114 DC 08/28 TOP 08/27 2116 0608 Last 24 Hrs of Lab/Emiliano Results Last 24 Hrs of Labs/Mics: Laboratory Tests 08/28/17 0745: Anion Gap 13, Estimated GFR > 60, BUN/Creatinine Ratio 21.4, Hemoglobin A1c 6.5 H, TSH &T3 &Free T4 Intrp 1.710, CBC w Diff NO MAN DIFF REQ, RBC 5.36, MCV 88.2, MCH 29.8, MCHC 33.8, RDW 13.2, MPV 7.6, Gran % 53.1, Lymphocytes % 31.1, Monocytes % 5.9, Eosinophils % 9.4 H, Basophils % 0.5, Absolute Granulocytes 6.1, Absolute Lymphocytes 3.6 H, Absolute Monocytes 0.7 H, Absolute Eosinophils 1.1, Absolute Basophils 0.1 Assessment/Plan Assessment: 77-year-old male with a past medical history significant for hypertension, hyperlipidemia, smoking, tuberculosis treated is brought in for evaluation and treatment of weakness. The patient states that on the day of admission at about 11 AM he felt that his knees were weak when he attempted to descend a flight of stairs. He also noticed transient blurry vision. He took a short nap and woke up around 2 pm feeling some improvement in the weakness. But around 5 pm, the weakness returned so his daughters brought him in. Family did not notice any facial droop or speech deficits.While in the ER, he noted that he felt his right hand was weaker although he was able to use it. At the time of interview in the ED he stated that he felt off balance when attempting to ambulate. Denies dizziness, CP or palpitations. No prior h/o stroke or TIA. No history of [place] or diabetes. Patient has a family history of heart disease. Neuro exam: speech clear, tongue/ uvula central, cranial nerve exam normal, no visual field deficits, no pronator drift, motor 5/5 in all extremities but very vague difference on right compared to left, sensation intact, plantars downgoing , reflexes 2+, no dysdiadochokinesia, finger nose testing was slightly off on the right side on initial ER PA exam, but this was accurate/ normal at the time of our evaluation. Gait- patient took slow steps and was dragging his right leg when asked to stand with feet together. On romberg's he was swaying backwards. 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 EKG: sinus rhythm, no acute changes. Plan Patient was placed in observation on the telemetry floors for evaluation and treatment of the following: Weakness with old left frontal infarct based on CT -MRI showed small acute infarct in the left thalamus. This could affect the patient's sensation, balance, peripheral vision but tests were all normal. Patient has no nausea or vomiting or issues with balance. -Fall precautions -Aspirin and high-dose statin, patient's lipid panel showed elevated triglycerides and LDL but cholesterol and LDL within normal limits -Echocardiogram can be done outpatient. We have supplied patient with central scheduling number and also with a PCP referral. -Carotid Doppler was negative. -Troponins and EKGs negative -PT/OT eval is suggesting home self care -Patient passed bedside swallow, can continue with diet -TSH, free T4, HbA1c: Thyroid function test normal but hemoglobin A1c elevated at 6.5. Patient has been instructed to control his diet and exercise and follow up with his new PCP Dr. Barnhart. Essential hypertension -Patient on amlodipine outpatient which we will continue. -We will hold amlodipine at the moment for permissive hypertension. For TIA data does not support with holding antihypertensives but as patient was found to have stroke in thalamus we will hold his amlodipine. Hyperlipidemia not on medications -High-dose statin Smoker -Smoking cessation enforced. -Nicotine patches 21 mg as patient smokes over 20 cigarettes a day. DVT ppx Lovenox. Full code. Problem List: 1. Acute thalamic infarction Pain Ratin Pain Location: na Pain Goal: Remain pain free Pain Plan: na Tomorrow's Labs & Rationales: Mervin Pryor 08/28/17 1129: Attending MD Review Statement Attending Statement Attending MD Statement: examined this patient, discuss w/resident/PA/PRODUCTION TEAM LEADER, agreed w/resident/PA/PRODUCTION TEAM LEADER, discussed with family, reviewed EMR data (avail), discussed with nursing, discussed with case mgmt, reviewed images, amended to note Attending Assessment/Plan: Patient seen/examined bedside. No new complaints. Patient independent and speech normal. Patient tolerating PO without issues. Patient can be discharged on ASA/ statin and ECHO as outpatient. Discharge instructions given.
[2017-08-28 08:18] LABS: ABSOLUTE BASOPHIL COUNT 0.1 /CUMM (0.0-0.2); ABSOLUTE EOSINOPHIL COUNT 1.1 /CUMM (0.0-0.7); ABSOLUTE GRANULOCYTE CT 6.1 /CUMM (1.4-6.5); ABSOLUTE LYMPH COUNT 3.6 /CUMM (1.2-3.4); ABSOLUTE MONOCYTE COUNT 0.7 /CUMM (0.10-0.60); BASOPHIL % 0.5 % (0.0-2.0); EOSINOPHIL % 9.4 % (0-5); GRANULOCYTE % 53.1 % (42.2-75.2); HEMATOCRIT 47.3 % (42-52); MEAN CORPUSCULAR HGB 29.8 PG (27.0-31.0); MEAN CORPUSCULAR HGB CONC 33.8 G/DL (33.0-37.0); MEAN CORPUSCULAR VOLUME 88.2 FL (80.0-94.0); MEAN PLATELET VOLUME 7.6 FL (7.4-10.4); PLATELET COUNT 359 /CUMM (130-400); RBC DISTRIBUTION WIDTH 13.2 % (11.5-14.5); RED BLOOD CELL CT 5.36 /CUMM (4.70-6.10); WHITE BLOOD CELL COUNT 11.6 /CUMM (4.8-10.8)
[2017-08-28] MEDS ORDERED: NICODERM CQ1 EAC2 TOP (08:44)
--- NOTE | 2017-09-03 05:52 | ECHOCARDIOGRAM REPORT ---
DONOVAN QUINONEZ Age: 77 : 1940 Gender: M Exam Date: 08/27/2017 09:17 Exam Location: ER Ht (in): 67 Wt (lb): 148 BSA: 1.79 BP: 142 / 67 Ordering Physician: Catarina Walsh MD Referring Physician: Last Travis MD Technologist: Chantale Butler Room Number: ER- 17 Indications: STROKE Rhythm: Sinus Technical Quality: Fair FINDINGS Left Ventricle Normal size left ventricle. 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 No obvious regional wall motion abnormalities. Normal left ventricular ejection fraction visually estimated at 60%. Right Ventricle Normal right ventricular size and function. Right Atrium Normal right atrial size. Left Atrium Normal left atrial size. Mitral Valve Structurally normal mitral valve. Trace mitral regurgitation. Aortic Valve Trileaflet aortic valve. Minimal aortic sclerosis. No aortic valve stenosis or regurgitation. Tricuspid Valve Structurally normal tricuspid valve. Trace tricuspid regurgitation. No evidence of pulmonary hypertension. Right ventricular systolic pressure estimated to be within the normal range at 18 mmHg. Pulmonic Valve Pulmonic valve not well visualized. No pulmonic regurgitation. Pericardium No pericardial effusion. Great Vessels Normal size aortic root. Mildly dilated proximal ascending aorta (tube). CONCLUSIONS Normal size left ventricle. 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 No obvious regional wall motion abnormalities. Normal left ventricular ejection fraction visually estimated at 60%. Normal right ventricular size and function. Normal atrial size. Trace mitral regurgitation. Trace tricuspid regurgitation. No evidence of pulmonary hypertension. Mildly dilated proximal ascending aorta (tube). Report amended to correct patient identifiers.. Last Travis M.D. (Electronically Signed) Final Date: 27 August 2017 18:29 Amended: 01 September 2017 18:15 MEASUREMENTS (Male / Female) Normal Values 2D ECHO LV Diastolic Diameter PLAX 4.7 cm 4.2 - 5.9 / 3.9 - 5.3 cm LV Systolic Diameter PLAX 3.2 cm 2.1 - 4.0 cm LV Fractional Shortening PLAX 31.9 % 25 - 46 % LV Ejection Fraction 2D Teich 60.0 % IVS Diastolic Thickness 1.1 cm LVPW Diastolic Thickness 1.0 cm LV Relative Wall Thickness 0.4 RV Internal Dim ED PLAX 2.5 cm 1.9 - 3.8 cm LVOT Diameter 2.2 cm LA Systolic Diameter LX 3.3 cm 3.0 - 4.0 / 2.7 - 3.8 cm LA Volume 31.0 cm 18 - 58 / 22 - 52 cm Ascending Aorta Diameter 3.6 cm DOPPLER AV Peak Velocity 129.0 cm/s AV Peak Gradient 6.7 mmHg AV Mean Velocity 94.1 cm/s AV Mean Gradient 4.0 mmHg AV Velocity Time Integral 31.4 cm LVOT Peak Velocity 77.8 cm/s LVOT Peak Gradient 2.4 mmHg LVOT Mean Velocity 51.6 cm/s LVOT Mean Gradient 1.0 mmHg LVOT Velocity Time Integral 16.9 cm LVOT Stroke Volume 64.2 cm AV Area Cont Eq vti 2.0 cm AV Area Cont Eq pk 2.3 cm MV Peak Velocity 73.8 cm/s MV Peak Gradient 2.2 mmHg MV Mean Velocity 40.8 cm/s MV Mean Gradient 1.0 mmHg Mitral E Point Velocity 59.3 cm/s Mitral A Point Velocity 51.4 cm/s Mitral E to A Ratio 1.2 MV PHT Velocity 66.5 cm/s MV Deceleration Tate 157.0 cm/s MV Pressure Half Time 127.1 ms MV Area PHT 1.7 cm MV Deceleration Time 278.0 ms TR Peak Velocity 141.0 cm/s TR Peak Gradient 8.0 mmHg Right Atrial Pressure 10.0 mmHg Pulmonary Artery Systolic Pressu 18.0 mmHg Right Ventricular Systolic Press 18.0 mmHg PV Peak Velocity 75.8 cm/s PV Peak Gradient 2.3 mmHg PV Mean Velocity 53.3 cm/s PV Mean Gradient 1.0 mmHg PV Velocity Time Integral 16.7 cm LV E' Lateral Velocity 11.6 cm/s Mitral E to LV E' Lateral Ratio 5.1 LV E' Septal Velocity 6.1 cm/s Mitral E to LV E' Septal Ratio 9.8
== END 2017-08-28 13:24 ==
LOC: ERH 17:22 → ERHI 20:26 → ENRESERV 08-27 13:41 → ENTRNSPT 08-27 16:05 → EDTRNSPTSTS 08-27 16:09 → EDTRNSPT 08-27 16:09 → 1NO 08-27 16:30 → CMPTRNSPT 08-27 17:25 → 1NO 08-28 13:24
PROVIDERS: Physician Assistant Medical; Student in an Organized Health Care Education/Training Program
DX: I63.9 Cerebral infarction, unspecified (principal); I10 Essential (primary) hypertension; E78.5 Hyperlipidemia, unspecified; F17.200 Nicotine dependence, unspecified, uncomplicated; D72.1 Eosinophilia; Z79.82 Long term (current) use of aspirin; Z86.11 Personal history of tuberculosis; Z79.899 Other long term (current) drug therapy
CPT/HCPCS: 70551; 36592; 81003; 82436; 93005; 93010; 96372; 97162-GP; 99291; G0378; G0480; G8978-GP; G8979-GP; J1650; J3490